=== PATIENT | female | born 1990 | race Caucasian/White ===

== ENCOUNTER 2021-05-30 15:02 | Emergency (ER) | payer OTHER ==
[~2021-05-30] VITALS: Ht 165.1 cm; Wt 93.0 kg
[2021-05-30 15:13] VITALS: BP 126/65
--- NOTE | 2021-05-30 15:32 | NUR ---
PATIENT TO BED 4.
--- NOTE | 2021-05-30 15:43 | NUR ---
31/F presents to ED with c/o chest pain. Patient states for 2 days she has been having 3/10 intermitting sharp chest pain while at rest, stating "I feel short of breath when the pain is there." Patient denies chest pain or shortness of breath at this time, states she is having periods of blurred vision, denies taking anything at home. Patient denies nausea, vomiting, diarrhea, patient is alert and oriented x4, answering questions appropriately.
[2021-05-30] MEDS ORDERED: NACL 0.9% 500 ML IV ONE (16:45)
[2021-05-30] MEDS ORDERED: METOCLOPRAMIDE 10 MG TAB PO ONE (16:45)
[2021-05-30] MEDS ORDERED: KETOROLAC 15 MG/ML VIAL IVP ONE (16:45)
[2021-05-30] MEDS ORDERED: IBUP-2213 PO (18:18)
[2021-05-30 18:30] VITALS: BP 112/69
== END 2021-05-30 18:30 | disposition home or self-care (01) ==
LOC: MED 15:02
DX: F41.9 Anxiety disorder, unspecified (principal); R07.89 Other chest pain
CPT/HCPCS: 71045; 81002; 93005; 96361; 96374; 99283; J1885; J7030; J8597; Q0163